=== PATIENT | male | born 1960 | race Caucasian/White ===

== ENCOUNTER 2019-06-24 08:54 | Inpatient (IN) | payer MEDICARE, MEDICAID ==
[~2019-06-24] VITALS: Ht 190.5 cm; Wt 73.6 kg
[2019-06-24] MEDS ORDERED: TRAM50TA2 PO (09:43)
--- NOTE | 2019-06-24 09:45 | NUR ---
PATIENT HERE FROM [facility] ACCOMPANIED BY STAFF MEMBER. PATIENT STATES THAT HE FELL WHILE GOING TO THE BATHROOM LAST NIGHT, SUSTAINING INJURY TO LEFT WRIST. OBVIOUS SWELLING AND DEFORMITY NOTED. ABLE TO MOVE WRIST AND RADIAL PULSE IS PRESENT. NURSE ABLE TO REMOVE ONE RING FROM LEFT RING FINGER. ONE RING REMAINS ON LEFT RING FINGER, BUT IS NOT COMPROMISING C/S TO LEFT RING FINGER AT THIS TIME.
[2019-06-24] MEDS ORDERED: LIDOcaine 1% 30ml preserv. free vial IJ ONE (09:55)
[2019-06-24] MEDS ORDERED: magnesium hydroxide 30ml (MOM) UD suspension PO PRN (10:20)
[2019-06-24] MEDS ORDERED: acetaminophen 325mg tablet PO PRN ×2 (10:20)
[2019-06-24] MEDS ORDERED: ondansetron/PF 4mg/2ml inj IV PRN (10:20)
[2019-06-24] MEDS ORDERED: morphine 2 MG/ML inj. syringe IV PRN (10:20)
[2019-06-24] MEDS ORDERED: mag hydrox/Alum hydrox/simeth 30ml oral suspension PO PRN (10:20)
[2019-06-24] MEDS ORDERED: HYDROcodone/acetaminophen 5mg/325mg tablet PO PRN (10:20)
[2019-06-24 10:43] LABS: BASOPHILS % (AUTO) 0.3 % (0-1); EOSINOPHILS # (AUTO) 0.2 X10'3 (0-0.9); EOSINOPHILS % (AUTO) 2.8 % (0-6); HEMATOCRIT 35.8 % (42.0-52.0); HEMOGLOBIN 12.2 g/dl (14.0-17.9); LYMPHOCYTES # (AUTO) 0.9 X10'3 (1.1-4.8); LYMPHOCYTES % (AUTO) 12.5 % (21-51); MEAN CORPUSCULAR HEMOGLOBIN 32.9 PG (27.0-31.0); MEAN CORPUSCULAR HGB CONC 33.9 g/dL (33.0-36.5); MEAN CORPUSCULAR VOLUME 96.9 FL (78-98); MEAN PLATELET VOLUME 6.2 FL (7.4-10.4); MONOCYTES # (AUTO) 0.7 X10'3 (0-0.9); NEUTROPHILS # (AUTO) 5.1 X10'3 (1.8-7.7); NEUTROPHILS % (AUTO) 74.4 % (42-75); PLATELET COUNT 236 X10'3 (140-440); RED CELL DISTRIBUTION WIDTH 12.8 % (11.5-14.5); WHITE BLOOD COUNT 6.9 X10'3 (4.5-11.0)
[2019-06-24 10:48] LABS: PARTIAL THROMBOPLASTIN TIME 44 SECONDS (22-32)
[2019-06-24 10:49] LABS: ALANINE AMINOTRANSFERASE 26 U/L (12-78); ALBUMIN 2.9 G/DL (3.4-5.0); ALBUMIN/GLOBULIN RATIO 0.7 (1.1-1.5); ALKALINE PHOSPHATASE 70 IU/L (46-116); ANION GAP 7 (8-16); ASPARTATE AMINO TRANSFERASE 24 U/L (10-37); BILIRUBIN,TOTAL 0.6 MG/DL (0.1-1.0); BLOOD UREA NITROGEN 17 MG/DL (7-18); BUN/CREATININE RATIO 22.1 (5.4-32.0); CHLORIDE 101 MMOL/L (99-107); CREATININE 0.77 MG/DL (0.60-1.10); GLUCOSE 103 MG/DL (70-104); POTASSIUM 4.7 MMOL/L (3.5-5.1); SODIUM 136 MMOL/L (135-145); TOTAL CARBON DIOXIDE 27.7 MMOL/L (24-32); TOTAL PROTEIN 7.1 G/DL (6.4-8.2); eGFR > 90 ML/MIN
[2019-06-24] MEDS ORDERED: IBUP-1984 PO (11:06)
[2019-06-24] MEDS ORDERED: MULT-964 PO (11:06)
[2019-06-24] MEDS ORDERED: MONT10TA24 PO (11:06)
[2019-06-24] MEDS ORDERED: NAPH15DR60 OP (11:06)
[2019-06-24] MEDS ORDERED: LOPE2TAB25 PO (11:06)
[2019-06-24] MEDS ORDERED: CARB200T2 PO ×3 (11:06)
[2019-06-24] MEDS ORDERED: LORA-660 PO (11:06)
[2019-06-24] MEDS ORDERED: ESOM40CA PO (11:06)
[2019-06-24] MEDS ORDERED: BENZ1TAB7 PO (11:06)
[2019-06-24] MEDS ORDERED: BUSP10TA11 PO (11:06)
[2019-06-24] MEDS ORDERED: PARO20TA6 PO (11:06)
[2019-06-24] MEDS ORDERED: NORT25CA5 PO (11:06)
[2019-06-24] MEDS ORDERED: BUDE10.22 INH (11:06)
[2019-06-24] MEDS ORDERED: PERP4TAB11 PO (11:06)
[2019-06-24] MEDS ORDERED: ADV50100 IH (11:06)
[2019-06-24] MEDS ORDERED: QUET-1 PO (11:06)
[2019-06-24 12:00] VITALS: BP 115/81
[2019-06-24] MEDS ORDERED: loperamide 2mg capsule PO PRN (16:00)
[2019-06-24] MEDS: normal saline 1000ml 1,000 ML IV SCH (16:44)
--- NOTE | 2019-06-24 17:16 | NUR ---
PAGER ID: [phone] MESSAGE: [facility] [id number] Aravind Moore in 4012a- HR 120-130, bp dropped to 92/68. urine is dark and turbid.
[2019-06-24 18:00] VITALS: BP 106/67
--- NOTE | 2019-06-24 18:00 | NUR ---
Patient in room ORTHO 4012. I have received report from BRAIN Tristan and had the opportunity to ask questions and assume patient care.
[2019-06-24 20:00] LABS: CLARITY,URINE SLIGHTLY CLOUDY (Clear); COLOR,URINE AMBER (Yellow); GLUCOSE, URINE NEGATIVE (Neg); KETONES,URINE 15 mg/dl (Neg); LEUKOCYTE ESTERASE ,URINE TRACE (Neg); NITRITES, URINE NEGATIVE (Neg); OCCULT BLOOD,URINE SMALL (Neg); PH,URINE 6.5 (4.8-8.0); PROTEIN,URINE 100 mg/dl (Neg)
[2019-06-24] MEDS ORDERED: non-formulary drug (Budesonide/Formoterol Fumarate (Symbicort 80-4.5 Mcg Inhaler) 2 PUFFS) INH SCH (20:00)
[2019-06-24] MEDS ORDERED: non-formulary drug (Fluticasone/Salmeterol* (Advair 100-50 Diskus*) 1 INH) IH SCH (20:00)
[2019-06-24] MEDS: carBAMazepine Ext. Release 200 MG TAB.ER.12H PO SCH ×2 (20:00→20:29)
[2019-06-24 20:02] LABS: UA COLLECTION TYPE URINAL
[2019-06-24] MEDS: albuterol 2.5 MG/3 ML nebule NEB SCH (20:24)
[2019-06-24] MEDS: budesonide 0.5mg/2ml UD nebule IH SCH (20:24)
[2019-06-24] MEDS: HYDROcodone/acetaminophen 10/325mg tab PO PRN (20:26)
[2019-06-24] MEDS: busPIRone 5mg tablet PO SCH (20:26)
[2019-06-24] MEDS: docusate sod 100mg capsule PO SCH (20:27)
[2019-06-24] MEDS: benztropine 1mg tablet PO SCH (20:27)
[2019-06-24] MEDS: nortriptyline 25mg capsule PO SCH (20:30)
[2019-06-24 20:45] LABS: BACTERIA,URINE 4+ /HPF (Neg); MUCUS STRANDS MODERATE /LPF (Neg); RBC,URINE 0-2 /HPF (0-2); SQUAMOUS EPITHELIAL CELL,UR FEW /LPF (FEW)
[2019-06-24 22:00] VITALS: BP 98/71
[2019-06-24 23:58] VITALS: BP 98/71
[2019-06-25] VITALS (15 sets, daily range): BP systolic 89–136; BP diastolic 50–109
[2019-06-25] MEDS: normal saline 1000ml 1,000 ML IV SCH ×3 (01:05→16:17)
--- NOTE | 2019-06-25 02:14 | NUR ---
Contacted Dr. Bailey regarding pt had urine residual between 550 to 750 ml per bladder scan, Dr. Bailey ordered a reyes catheter since pt has hip fx and will have surgery soon.
[2019-06-25] MEDS: albuterol 2.5 MG/3 ML nebule NEB SCH ×4 (03:00→21:00)
[2019-06-25] MEDS: morphine 2 MG/ML inj. syringe IV PRN ×3 (05:34→17:55)
--- NOTE | 2019-06-25 06:00 | NUR ---
Problems reprioritized. Patient report given, questions answered & plan of care reviewed with BRAIN Arredondo.
--- NOTE | 2019-06-25 06:15 | NUR ---
Patient in room ORTHO 4012. I have received report from and had the opportunity to ask questions and assume patient care BRAIN montelongo.
[2019-06-25 06:55] LABS: BASOPHILS % (AUTO) 0.3 % (0-1); EOSINOPHILS # (AUTO) 0.2 X10'3 (0-0.9); HEMATOCRIT 34.8 % (42.0-52.0); HEMOGLOBIN 11.7 g/dl (14.0-17.9); LYMPHOCYTES # (AUTO) 0.9 X10'3 (1.1-4.8); LYMPHOCYTES % (AUTO) 11.1 % (21-51); MEAN CORPUSCULAR HEMOGLOBIN 33.2 PG (27.0-31.0); MEAN CORPUSCULAR HGB CONC 33.7 g/dL (33.0-36.5); MEAN CORPUSCULAR VOLUME 98.4 FL (78-98); MEAN PLATELET VOLUME 6.9 FL (7.4-10.4); MONOCYTES # (AUTO) 0.8 X10'3 (0-0.9); MONOCYTES % (AUTO) 9.7 % (2-12); NEUTROPHILS % (AUTO) 75.9 % (42-75); PLATELET COUNT 243 X10'3 (140-440); RED BLOOD COUNT 3.53 X10'6 (4.70-6.10); RED CELL DISTRIBUTION WIDTH 12.9 % (11.5-14.5); WHITE BLOOD COUNT 7.9 X10'3 (4.5-11.0)
[2019-06-25 07:08] LABS: ALBUMIN 2.3 G/DL (3.4-5.0); ANION GAP 11 (8-16); BLOOD UREA NITROGEN 18 MG/DL (7-18); BUN/CREATININE RATIO 28.6 (5.4-32.0); CALCIUM 8.3 MG/DL (8.5-10.1); CHLORIDE 105 MMOL/L (99-107); CREATININE 0.63 MG/DL (0.60-1.10); GLUCOSE 101 MG/DL (70-104); POTASSIUM 4.1 MMOL/L (3.5-5.1); SODIUM 139 MMOL/L (135-145); TOTAL CARBON DIOXIDE 22.9 MMOL/L (24-32); eGFR > 90 ML/MIN
[2019-06-25] MEDS: budesonide 0.5mg/2ml UD nebule IH SCH ×2 (08:41→21:00)
[2019-06-25] MEDS: multivitamins, therapeutics tablet PO SCH (09:42)
[2019-06-25] MEDS: HYDROcodone/acetaminophen 10/325mg tab PO PRN ×2 (09:42→12:59)
[2019-06-25] MEDS: benztropine 1mg tablet PO SCH ×2 (09:43→20:46)
[2019-06-25] MEDS: quetiapine 100mg tablet PO SCH (09:43)
[2019-06-25] MEDS: carBAMazepine Ext. Release 200 MG TAB.ER.12H PO SCH ×3 (09:43→20:45)
[2019-06-25] MEDS: pantoprazole 40mg Tablet.DR PO SCH (09:46)
[2019-06-25] MEDS: docusate sod 100mg capsule PO SCH ×2 (09:46→20:46)
[2019-06-25] MEDS: PARoxetine 20mg tablet PO SCH (09:46)
[2019-06-25] MEDS: busPIRone 5mg tablet PO SCH ×2 (09:46→20:46)
[2019-06-25] MEDS: loratadine 10mg tablet PO SCH (09:46)
[2019-06-25] MEDS ORDERED: ringers solution, lacted 1,000 ML IV SCH (12:53)
[2019-06-25] MEDS ORDERED: fentaNYL/PF 50MCG/1 ML 2ML syringe IV PRN ×2 (12:55)
[2019-06-25] MEDS ORDERED: morphine 4 MG/ML inj SYRINge IV PRN ×2 (12:55)
[2019-06-25] MEDS ORDERED: hydrALAZINE 20mg/ml inj. IV PRN (12:55)
[2019-06-25] MEDS ORDERED: ondansetron/PF 4mg/2ml inj IV PRN ×2 (12:55→15:30)
[2019-06-25] MEDS ORDERED: labetalol 20mg/4ml (5mg/ml) syringe IV PRN (12:55)
[2019-06-25] MEDS ORDERED: ceFAZolin 1GM/D5W- ADD-VANTAGE 50 ML IV ONE (13:10)
[2019-06-25] MEDS ORDERED: BUPIVAcaine/PF 2.5 mg/ml (0.25%) 30ml vial ONE (13:20)
[2019-06-25] MEDS ORDERED: midazolam 2 mg/2 ml injection ONE (13:30)
[2019-06-25] MEDS ORDERED: fentaNYL/PF 50MCG/1 ML 2ML syringe ONE (13:30)
[2019-06-25] MEDS ORDERED: dexamethasone sod phosphate 4mg/ml inj. ONE (13:31)
[2019-06-25] MEDS ORDERED: ondansetron/PF 4mg/2ml inj ONE (13:31)
[2019-06-25] MEDS ORDERED: LIDOcaine 2% (20mg/ml) 5ml vial ONE (13:31)
[2019-06-25] MEDS ORDERED: propofol inj 20 ML IV ONE (13:31)
[2019-06-25] MEDS ORDERED: ROPIVAcaine 0.5% (5mg/ml) 30ml vial ONE (14:03)
[2019-06-25] MEDS ORDERED: ceFAZolin 1000mg inj ONE ×2 (14:19)
[2019-06-25] MEDS ORDERED: phenylephrine 10mg/ml inj. ONE (14:27)
[2019-06-25] MEDS ORDERED: bisacodyl 10mg suppository rectal RC PRN (15:30)
[2019-06-25] MEDS ORDERED: diphenhydrAMINE 25mg capsule PO PRN ×2 (15:30)
[2019-06-25] MEDS ORDERED: magnesium hydroxide 30ml (MOM) UD suspension PO PRN (15:30)
[2019-06-25] MEDS ORDERED: acetaminophen 325mg tablet PO PRN (15:30)
--- NOTE | 2019-06-25 15:40 | NUR ---
Received from OR via , accompanied by Anesthesiologist DR KATHLEEN and report given by Anesthesiolgist. PT WAKES TO VOICE, MOVING EXT X 4, BILAT DOSAL PEDAL PULSES +3, NO C/O PAIN, PIV 20G RIGHT UPPER FA, CAIN TO GRAVITY WITH ESPERANZA COLORED URINE, RIGHT HIP DRESSING CD, LEFT WRIST SPLINT/SUSANNA WRAP CD, SCD'S.
[2019-06-25] MEDS ORDERED: ceFAZolin 1GM/D5W- ADD-VANTAGE 50 ML IV SCH (16:00)
--- NOTE | 2019-06-25 16:08 | NUR ---
Report called to receiving nurse. Transferred via [facility] . Special Issues communicated to receiving nurse JEAN MARIE DE LA PAZ. PT IS SLEEPY BUT WAKES EASILY, NO C/O PAIN, PT DOES NOT JUDAH OXYGEN MASK OR NC BUT SATS ARE IN THE 90S, SCD'S ON PIV PATENT, RIGHT HIP AND LEFT WRIST DRESSING CD, PT MEETS DISCHARGE CRITERIA.
--- NOTE | 2019-06-25 17:00 | NUR ---
pt refuses NC/O2, pt yelling that he is hungry. Accepted a few ice chips. Fighting pt care. pt will not allow assessment. Able to get vitals cuff on pt. pt attempted to pull out FC and IV. pt still trying to wake up. ELLY. Will continue to monitor pt condition. Addendum: 06/25/19 at 1938 by Maria Elena Sargent RN Pt O2 in 80s, continues to refuse NC.
--- NOTE | 2019-06-25 18:50 | NUR ---
Patient in room ORTHO 4012. I have received report from Maria Elena DE LA PAZ and had the opportunity to ask questions and assume patient care.
--- NOTE | 2019-06-25 20:20 | NUR ---
I called Dr. Bailey in regards to the telemetry order and he said to have the patient on the tele unit. He was also informed about the rhythm of possible junctional tachy with the P waves not being seen and that Atrial kick might be affected. The pt's vitals are stable at this time except for heart rate in the 120-130's.
[2019-06-25] MEDS: nortriptyline 25mg capsule PO SCH (20:46)
[2019-06-25] MEDS: sennosides 8.6mg tablet PO SCH (20:47)
[2019-06-25] MEDS: ceFAZolin 1GM/D5W- ADD-VANTAGE 50 ML IV SCH (23:26)
[2019-06-26 02:00] VITALS: BP 100/65
[2019-06-26] MEDS: normal saline 1000ml 1,000 ML IV SCH ×2 (02:05→15:54)
[2019-06-26] MEDS: albuterol 2.5 MG/3 ML nebule NEB SCH ×4 (02:53→20:01)
[2019-06-26 06:00] VITALS: BP 126/69
--- NOTE | 2019-06-26 06:23 | NUR ---
Problems reprioritized. Patient report given, questions answered & plan of care reviewed with Maria Elena DE LA PAZ.
[2019-06-26 06:56] LABS: BASOPHILS % (AUTO) 0.5 % (0-1); EOSINOPHILS # (AUTO) 0.2 X10'3 (0-0.9); EOSINOPHILS % (AUTO) 2.5 % (0-6); HEMOGLOBIN 10.8 g/dl (14.0-17.9); LYMPHOCYTES # (AUTO) 0.7 X10'3 (1.1-4.8); LYMPHOCYTES % (AUTO) 10.1 % (21-51); MEAN CORPUSCULAR HEMOGLOBIN 33.1 PG (27.0-31.0); MEAN CORPUSCULAR HGB CONC 33.8 g/dL (33.0-36.5); MEAN CORPUSCULAR VOLUME 97.9 FL (78-98); MEAN PLATELET VOLUME 6.7 FL (7.4-10.4); MONOCYTES # (AUTO) 0.6 X10'3 (0-0.9); NEUTROPHILS # (AUTO) 5.6 X10'3 (1.8-7.7); NEUTROPHILS % (AUTO) 77.9 % (42-75); PLATELET COUNT 260 X10'3 (140-440); RED BLOOD COUNT 3.26 X10'6 (4.70-6.10); RED CELL DISTRIBUTION WIDTH 12.8 % (11.5-14.5); WHITE BLOOD COUNT 7.2 X10'3 (4.5-11.0)
[2019-06-26] MEDS: morphine 2 MG/ML inj. syringe IV PRN (06:57)
[2019-06-26 07:21] LABS: ALBUMIN 2.3 G/DL (3.4-5.0); ANION GAP 11 (8-16); BLOOD UREA NITROGEN 17 MG/DL (7-18); BUN/CREATININE RATIO 25.8 (5.4-32.0); CALCIUM 8.1 MG/DL (8.5-10.1); CHLORIDE 106 MMOL/L (99-107); CREATININE 0.66 MG/DL (0.60-1.10); GLUCOSE 86 MG/DL (70-104); POTASSIUM 4.1 MMOL/L (3.5-5.1); SODIUM 140 MMOL/L (135-145); TOTAL CARBON DIOXIDE 23.3 MMOL/L (24-32); eGFR > 90 ML/MIN
[2019-06-26] MEDS: carBAMazepine Ext. Release 200 MG TAB.ER.12H PO SCH ×2 (08:00→20:17)
[2019-06-26] MEDS: loratadine 10mg tablet PO SCH (08:58)
[2019-06-26] MEDS: benztropine 1mg tablet PO SCH ×2 (08:59→19:04)
[2019-06-26] MEDS: pantoprazole 40mg Tablet.DR PO SCH (08:59)
[2019-06-26] MEDS: PARoxetine 20mg tablet PO SCH (08:59)
[2019-06-26] MEDS: busPIRone 5mg tablet PO SCH ×2 (08:59→19:04)
[2019-06-26] MEDS: multivitamins, therapeutics tablet PO SCH (08:59)
[2019-06-26] MEDS: docusate sod 100mg capsule PO SCH ×2 (08:59→19:03)
[2019-06-26] MEDS: quetiapine 100mg tablet PO SCH (08:59)
[2019-06-26] MEDS: enoxaparin 40mg/0.4ml syringe SQ SCH (09:01)
[2019-06-26] MEDS: budesonide 0.5mg/2ml UD nebule IH SCH ×2 (09:19→20:01)
[2019-06-26 10:00] VITALS: BP 119/63
[2019-06-26] MEDS: ceFAZolin 1GM/D5W- ADD-VANTAGE 50 ML IV SCH (11:05)
--- NOTE | 2019-06-26 15:57 | NUR ---
Carbamazepine ER requires trough before each administration. Add on Lab ordered. Need to ad order for labs each day.
[2019-06-26 18:00] VITALS: BP 109/59
--- NOTE | 2019-06-26 18:05 | NUR ---
Patient in room ORTHO 4012. I have received report from Maria Elena DE LA PAZ and had the opportunity to ask questions and assume patient care.
--- NOTE | 2019-06-26 18:09 | NUR ---
Problems reprioritized. Patient report given, questions answered & plan of care reviewed with BRAIN Callahan.
[2019-06-26] MEDS: lactobacillus rhamnosus 10,000 MMU CELLS/CAPSULE PO SCH (19:03)
[2019-06-26] MEDS: HYDROcodone/acetaminophen 10/325mg tab PO PRN (19:04)
[2019-06-26] MEDS: sennosides 8.6mg tablet PO SCH (20:17)
[2019-06-26] MEDS: nortriptyline 25mg capsule PO SCH (20:17)
[2019-06-26 22:00] VITALS: BP 135/70
[2019-06-27] MEDS: normal saline 1000ml 1,000 ML IV SCH ×2 (00:59→08:12)
[2019-06-27] MEDS: HYDROcodone/acetaminophen 10/325mg tab PO PRN ×3 (01:02→20:13)
[2019-06-27] MEDS: albuterol 2.5 MG/3 ML nebule NEB SCH ×4 (02:33→21:00)
[2019-06-27 06:08] LABS: BASOPHILS % (AUTO) 0.4 % (0-1); EOSINOPHILS # (AUTO) 0.1 X10'3 (0-0.9); EOSINOPHILS % (AUTO) 2.7 % (0-6); HEMATOCRIT 27.1 % (42.0-52.0); HEMOGLOBIN 9.4 g/dl (14.0-17.9); LYMPHOCYTES # (AUTO) 0.6 X10'3 (1.1-4.8); LYMPHOCYTES % (AUTO) 12.3 % (21-51); MEAN CORPUSCULAR HEMOGLOBIN 33.9 PG (27.0-31.0); MEAN CORPUSCULAR HGB CONC 34.8 g/dL (33.0-36.5); MEAN CORPUSCULAR VOLUME 97.4 FL (78-98); MEAN PLATELET VOLUME 6.5 FL (7.4-10.4); MONOCYTES # (AUTO) 0.6 X10'3 (0-0.9); MONOCYTES % (AUTO) 11.5 % (2-12); NEUTROPHILS # (AUTO) 3.8 X10'3 (1.8-7.7); NEUTROPHILS % (AUTO) 73.1 % (42-75); PLATELET COUNT 241 X10'3 (140-440); RED BLOOD COUNT 2.78 X10'6 (4.70-6.10); RED CELL DISTRIBUTION WIDTH 12.8 % (11.5-14.5); WHITE BLOOD COUNT 5.2 X10'3 (4.5-11.0)
--- NOTE | 2019-06-27 06:17 | NUR ---
Problems reprioritized. Patient report given, questions answered & plan of care reviewed with Kim DE LA PAZ.
[2019-06-27 06:28] LABS: ANION GAP 11 (8-16); BLOOD UREA NITROGEN 11 MG/DL (7-18); CALCIUM 7.7 MG/DL (8.5-10.1); CHLORIDE 106 MMOL/L (99-107); GLUCOSE 92 MG/DL (70-104); POTASSIUM 3.7 MMOL/L (3.5-5.1); SODIUM 141 MMOL/L (135-145); TOTAL CARBON DIOXIDE 24.2 MMOL/L (24-32); eGFR > 90 ML/MIN
[2019-06-27 07:26] VITALS: BP 120/82
[2019-06-27] MEDS: quetiapine 100mg tablet PO SCH (08:06)
[2019-06-27] MEDS: enoxaparin 40mg/0.4ml syringe SQ SCH (08:06)
[2019-06-27] MEDS: pantoprazole 40mg Tablet.DR PO SCH (08:07)
[2019-06-27] MEDS: carBAMazepine Ext. Release 200 MG TAB.ER.12H PO SCH ×2 (08:07→20:12)
[2019-06-27] MEDS: PARoxetine 20mg tablet PO SCH (08:07)
[2019-06-27] MEDS: lactobacillus rhamnosus 10,000 MMU CELLS/CAPSULE PO SCH ×2 (08:07→20:12)
[2019-06-27] MEDS: loratadine 10mg tablet PO SCH (08:07)
[2019-06-27] MEDS: multivitamins, therapeutics tablet PO SCH (08:07)
[2019-06-27] MEDS: docusate sod 100mg capsule PO SCH ×2 (08:07→20:12)
[2019-06-27] MEDS: benztropine 1mg tablet PO SCH ×2 (08:08→20:12)
[2019-06-27] MEDS: busPIRone 5mg tablet PO SCH ×2 (08:10→20:12)
[2019-06-27] MEDS: budesonide 0.5mg/2ml UD nebule IH SCH ×2 (08:21→21:00)
[2019-06-27 10:52] VITALS: BP 90/69
[2019-06-27 17:00] VITALS: BP 130/83
[2019-06-27] MEDS: nortriptyline 25mg capsule PO SCH (20:12)
[2019-06-27] MEDS: sennosides 8.6mg tablet PO SCH (20:12)
[2019-06-27 22:00] VITALS: BP 117/77
[2019-06-28] MEDS: HYDROcodone/acetaminophen 10/325mg tab PO PRN ×2 (00:25→04:32)
[2019-06-28] MEDS: albuterol 2.5 MG/3 ML nebule NEB SCH ×2 (02:04→07:36)
[2019-06-28 06:00] VITALS: BP 144/71
--- NOTE | 2019-06-28 06:00 | NUR ---
Patient in room ORTHO 4012. I have received report from BRAIN Callahan and had the opportunity to ask questions and assume patient care. Addendum: 06/28/19 at 0647 by Katlyn Torrez RN Amended: Links added.
[2019-06-28 06:58] LABS: BASOPHILS % (AUTO) 0.4 % (0-1); EOSINOPHILS # (AUTO) 0.2 X10'3 (0-0.9); EOSINOPHILS % (AUTO) 3.8 % (0-6); HEMATOCRIT 28.2 % (42.0-52.0); HEMOGLOBIN 9.7 g/dl (14.0-17.9); LYMPHOCYTES # (AUTO) 0.6 X10'3 (1.1-4.8); LYMPHOCYTES % (AUTO) 11.3 % (21-51); MEAN CORPUSCULAR HEMOGLOBIN 33.4 PG (27.0-31.0); MEAN CORPUSCULAR HGB CONC 34.2 g/dL (33.0-36.5); MEAN CORPUSCULAR VOLUME 97.6 FL (78-98); MEAN PLATELET VOLUME 6.7 FL (7.4-10.4); MONOCYTES # (AUTO) 0.6 X10'3 (0-0.9); MONOCYTES % (AUTO) 11.4 % (2-12); NEUTROPHILS # (AUTO) 3.7 X10'3 (1.8-7.7); NEUTROPHILS % (AUTO) 73.1 % (42-75); PLATELET COUNT 276 X10'3 (140-440); RED BLOOD COUNT 2.89 X10'6 (4.70-6.10); RED CELL DISTRIBUTION WIDTH 12.8 % (11.5-14.5)
[2019-06-28 07:07] LABS: ALBUMIN 1.9 G/DL (3.4-5.0); ANION GAP 7 (8-16); BLOOD UREA NITROGEN 10 MG/DL (7-18); BUN/CREATININE RATIO 18.2 (5.4-32.0); CALCIUM 7.8 MG/DL (8.5-10.1); CHLORIDE 106 MMOL/L (99-107); CREATININE 0.55 MG/DL (0.60-1.10); GLUCOSE 88 MG/DL (70-104); POTASSIUM 3.6 MMOL/L (3.5-5.1); SODIUM 140 MMOL/L (135-145); TOTAL CARBON DIOXIDE 26.6 MMOL/L (24-32); eGFR > 90 ML/MIN
[2019-06-28] MEDS: budesonide 0.5mg/2ml UD nebule IH SCH (07:36)
[2019-06-28] MEDS: quetiapine 100mg tablet PO SCH (09:20)
[2019-06-28] MEDS: busPIRone 5mg tablet PO SCH (09:20)
[2019-06-28] MEDS: loratadine 10mg tablet PO SCH (09:20)
[2019-06-28] MEDS: lactobacillus rhamnosus 10,000 MMU CELLS/CAPSULE PO SCH (09:20)
[2019-06-28] MEDS: docusate sod 100mg capsule PO SCH (09:20)
[2019-06-28] MEDS: benztropine 1mg tablet PO SCH (09:20)
[2019-06-28] MEDS: pantoprazole 40mg Tablet.DR PO SCH (09:20)
[2019-06-28] MEDS: PARoxetine 20mg tablet PO SCH (09:21)
[2019-06-28] MEDS: carBAMazepine Ext. Release 200 MG TAB.ER.12H PO SCH (09:21)
[2019-06-28] MEDS: enoxaparin 40mg/0.4ml syringe SQ SCH (09:22)
[2019-06-28] MEDS: multivitamins, therapeutics tablet PO SCH (09:23)
[2019-06-28 10:00] VITALS: BP 121/75
== END 2019-06-28 17:00 | DRG 480 ==
LOC: ER 08:55 → ORTHO 4S 11:49 → CMPBEDREQ 06-26 19:56
PROVIDERS: ADMIT Internal Medicine; ATTEND Family Medicine
PROC: 0PSJXZZ Reposition Left Radius, External Approach (ICD-10-PCS; 2019-06-24)
PROC: 0PSJ04Z Reposition Left Radius with Internal Fixation Device, Open Approach (ICD-10-PCS; 2019-06-25)
PROC: 0QS606Z Reposition Right Upper Femur with Intramedullary Internal Fixation Device, Open Approach (ICD-10-PCS; principal; 2019-06-25 14:14)
DX: S52.512A Displaced fracture of left radial styloid process, initial encounter for closed fracture (principal); S72.141A Displaced intertrochanteric fracture of right femur, initial encounter for closed fracture; D62 Acute posthemorrhagic anemia; S52.502A Unspecified fracture of the lower end of left radius, initial encounter for closed fracture; F17.210 Nicotine dependence, cigarettes, uncomplicated; G40.909 Epilepsy, unspecified, not intractable, without status epilepticus; W05.0XXA Fall from non-moving wheelchair, initial encounter; G47.00 Insomnia, unspecified; J44.9 Chronic obstructive pulmonary disease, unspecified; K21.9 Gastro-esophageal reflux disease without esophagitis; F32.9 Major depressive disorder, single episode, unspecified; R45.1 Restlessness and agitation; F41.9 Anxiety disorder, unspecified; R00.0 Tachycardia, unspecified; Z79.899 Other long term (current) drug therapy; Z79.51 Long term (current) use of inhaled steroids; Y93.89 Activity, other specified; Y99.8 Other external cause status; Y92.091 Bathroom in other non-institutional residence as the place of occurrence of the external cause
CPT/HCPCS: 25605; 36415; 71045; 73100; 73110; 73502; 76000; 80048; 80053; 80156; 81001; 83880; 85025; 85610; 85730; 87081; 87088; 93005; 94640; 94760; 97110; 97161; 97530; 97535; 99285; A4618; A6222; A6449; A7000; C1713; G0378; J0690; J1100; J1650; J2001; J2250; J2270; J2370; J2405; J2704; J2795; J3010; J3490; J7030; J7120; J7626; Q0175

== ENCOUNTER 2021-10-01 08:10 | Day surgery (SDC) | payer MEDICARE, MEDICAID ==
[~2021-10-01] VITALS: Ht 188 cm; Wt 72.7 kg
[~2021-10-01 08:10] MED LIST: BUDE10.22 INH; BUSP10TA11 PO; CARB200T2 PO; DICL100G15 TOP; DOCU-148 PO; FLUT16SP11 BOTHNARES; LOPE2TAB25 PO; LORA-657 PO; MONT-40 PO; MULT-964 PO; NAPH15DR60 OP; NORT25CA5 PO; PANT-47 PO; PARO20TA6 PO
[2021-10-01] MEDS ORDERED: normal saline 1000ml 1,000 ML IV PRN (08:35)
[2021-10-01] MEDS ORDERED: heparin 1,000unit/ml 10ml vial 10 ML ONE (10:01)
[2021-10-01] MEDS ORDERED: LIDOcaine 1% (10mg/ml) 2ml vial ONE (10:01)
[2021-10-01] MEDS ORDERED: midazolam 1 mg/ML 2ml injection ONE (10:02)
[2021-10-01] MEDS ORDERED: fentaNYL/PF 50MCG/1 ML 2ML syringe ONE (10:02)
[2021-10-01] MEDS ORDERED: heparin sodium, porcine/PF 100unit/ml 5ML syringe ONE (10:10)
[2021-10-01 11:03] VITALS: BP 119/90
[2021-10-01 11:16] VITALS: BP 121/78
== END 2021-10-01 11:55 | disposition home or self-care (01) ==
LOC: SSTAY O 08:10
PROVIDERS: ATTEND Radiology Vascular & Interventional Radiology
DX: C34.32 Malignant neoplasm of lower lobe, left bronchus or lung (principal)
CPT/HCPCS: 36561; 76937; 77001; 99152; 99153; C1788; C1894; J1642; J1644; J2250; J3010; J3490; J7030

== ENCOUNTER 2022-04-10 19:11 | Emergency (ER) | payer MEDICARE, MEDICAID ==
[~2022-04-10] VITALS: Ht 188 cm; Wt 63.0 kg
[2022-04-10 19:30] VITALS: BP 129/90
[2022-04-10] MEDS ORDERED: ibuprofen 200mg tablet PO ONE (20:25)
[2022-04-10] MEDS ORDERED: IBUP-1985 PO (21:44)
== END 2022-04-10 21:47 | disposition home or self-care (01) ==
LOC: ER 19:12
DX: M79.604 Pain in right leg (principal); M25.551 Pain in right hip; M79.651 Pain in right thigh; J45.909 Unspecified asthma, uncomplicated; K21.9 Gastro-esophageal reflux disease without esophagitis; Z79.899 Other long term (current) drug therapy
CPT/HCPCS: 29505; 73552; 99283

== ENCOUNTER 2022-10-25 17:30 | Emergency (ER) | payer MEDICARE, MEDICAID ==
[~2022-10-25] VITALS: Ht 188 cm; Wt 71.8 kg
[~2022-10-25 17:30] MED LIST changes: +IBUP-1985 PO
[2022-10-25 17:58] LABS: BASOPHILS % (AUTO) 0.5 % (0-1); EOSINOPHILS # (AUTO) 0.4 X10'3 (0-0.9); EOSINOPHILS % (AUTO) 6.9 % (0-6); HEMATOCRIT 41.7 % (42.0-52.0); HEMOGLOBIN 14.2 g/dl (14.0-17.9); LYMPHOCYTES # (AUTO) 0.8 X10'3 (1.1-4.8); LYMPHOCYTES % (AUTO) 12.7 % (21-51); MEAN CORPUSCULAR HEMOGLOBIN 32.7 PG (27.0-31.0); MEAN CORPUSCULAR HGB CONC 34.1 g/dL (33.0-36.5); MEAN CORPUSCULAR VOLUME 96.1 FL (78-98); MEAN PLATELET VOLUME 6.2 FL (7.4-10.4); MONOCYTES # (AUTO) 0.7 X10'3 (0-0.9); MONOCYTES % (AUTO) 11.6 % (2-12); NEUTROPHILS # (AUTO) 4.2 X10'3 (1.8-7.7); NEUTROPHILS % (AUTO) 68.3 % (42-75); PLATELET COUNT 191 X10'3 (140-440); RED BLOOD COUNT 4.34 X10'6 (4.70-6.10); WHITE BLOOD COUNT 6.1 X10'3 (4.5-11.0)
[2022-10-25] MEDS ORDERED: normal saline 1000ML IV soln IVB ONE (18:15)
[2022-10-25 18:16] LABS: ALANINE AMINOTRANSFERASE 21 U/L (12-78); ALBUMIN 3.6 G/DL (3.4-5.0); ALKALINE PHOSPHATASE 112 IU/L (46-116); ANION GAP 6 (8-16); ASPARTATE AMINO TRANSFERASE 20 U/L (10-37); BILIRUBIN,TOTAL 0.2 MG/DL (0.1-1.0); BLOOD UREA NITROGEN 16 MG/DL (7-18); BUN/CREATININE RATIO 18.2 (5.4-32.0); CALCIUM 8.2 MG/DL (8.5-10.1); CHLORIDE 100 MMOL/L (99-107); CREATININE 0.88 MG/DL (0.60-1.10); GLUCOSE 96 MG/DL (70-104); POTASSIUM 4.1 MMOL/L (3.5-5.1); SODIUM 134 MMOL/L (135-145); TOTAL CARBON DIOXIDE 28.3 MMOL/L (24-32); TOTAL PROTEIN 7.2 G/DL (6.4-8.2); eGFR 88 ML/MIN
[2022-10-25] MEDS ORDERED: CefTRIAXone 2gm/D5W 50ml BAG 50 ML IV ONE (18:20)
[2022-10-25 18:48] LABS: D-DIMER 0.65 MG/L FEU (0-0.50)
[2022-10-25] MEDS ORDERED: iohexol 350MG/ML 100ml bottle IV ONE (18:51)
--- NOTE | 2022-10-25 20:27 | NUR ---
Patient refuses flu and covid swab stating that he "cant stand it". notified.
[2022-10-25 20:30] VITALS: BP 158/108
[2022-10-25] MEDS ORDERED: AZIT-83 PO (21:05)
[2022-10-25] MEDS ORDERED: azithromycin 250mg tablet PO ONE (21:05)
== END 2022-10-25 21:32 | disposition home or self-care (01) ==
LOC: ER 17:31
DX: J18.9 Pneumonia, unspecified organism (principal); J45.909 Unspecified asthma, uncomplicated; K21.9 Gastro-esophageal reflux disease without esophagitis; Z79.899 Other long term (current) drug therapy; Z79.1 Long term (current) use of non-steroidal anti-inflammatories (NSAID); Z79.2 Long term (current) use of antibiotics
CPT/HCPCS: 36415; 71045; 71275; 80053; 83605; 83880; 84145; 84484; 85025; 85379; 85610; 87040; 93005; 96365; 96366; 99285; J0696; J3490; J7030; Q9967